=== PATIENT | male | born 1940 | race Two or more races ===

== ENCOUNTER → 2020-12-25 | Outpatient (CLI) | payer MEDICARE, OTHER ==
[2020-07-17 10:25] VITALS: BP 114/58
[~2020-12-25] MED LIST: AMOX1TAB10 PO; CHOL500021 PO; DILT240C33 PO; FENO145T3 PO; FINA5TAB4 PO; LEVO50TA5 PO; LISI1TAB23 PO; LOVA20TA2 PO; METF10007 PO; PROC10TA57 PO; TAMS0.4C97 PO
--- NOTE | 2020-12-25 12:16 | RAD ---
PQRS Compliance Statement: One or more of the following individualized dose reduction techniques were utilized for this examinat ion: 1. Automated exposure control 2. Adjustment of the mA and/or kV according to patient size 3. Use of iterative reconstruction technique CT THORAX WO 12/25/2020 9:08 AM Indication: History of lung cancer COMPARISON: CT chest 11/13/2020, 10/01/2020, 05/21/2020 TECHNIQUE: Multiple axial CT images of the chest were obtained without intravenous contrast. Coronal and sagittal reformats are provided. FINDINGS: There is right apical pleural-parenchymal scarring. Previously seen spiculated nodule at the right lisset ng apex measuring 2.4 cm on 05/21/2020 and 1.9 cm on 11/13/2019 currently measures 1.9 cm with increased adjacent reticular interstitial airspace disease. Stable subpleural nodular mixed solid solid opacit y in the left lung apex measuring 1.5 cm (series 3, image 10). There is increased consolidative gonzales e in the right upper lobe with volume loss which may represent atelectasis versus interstitial pneumo nitis. A cavitary mass with air-fluid level has remained similar in size measuring approximately 4.6 x 3.5 cm (series 3, image 19). Similar degree of adjacent consolidative change within the lateral rig ht upper lobe with associated air bronchograms as compared prior examination. In the right lower lobe there is a solid noncalcified pulmonary nodule measuring 6 mm (series 3, image 26), stable. Calcifie d granuloma identified in the lateral right lung base. Moderate centrilobular pulmonary emphysema. Vo lume loss in the left lung base. Trace right pleural effusion, increased since the prior examination. No pulmonary vascular congestion or pneumothorax. Heart size is within normal limits. Thoracic aorta is normal in course and caliber with moderate calcified atheromatous plaque. Left chest wall infusio n port catheter is identified with the distal tip terminating at the cavoatrial junction. Limited william luation of hilar lymphadenopathy without intravenous contrast. No mediastinal lymph nodes are identif ied are pathologically enlarged. No suspicious osseous abnormality is identified. Post surgical gonzales es are identified along the superior pole the left kidney. Adrenal glands are normal. Gas containing gallstone suspected. IMPRESSION: Similar appearance of a spiculated nodule within the right upper lobe as well as a cavitary lung mass in the posterior right upper lobe with increasing surrounding reticular interstitial and consolidati ve changes suggestive of either posttreatment related changes, postobstructive pneumonitis or lymphan gitic spread of tumor. Continued follow-up is recommended to distinguish etiology. No new or enlargin g thoracic lymphadenopathy. Increase in trace right pleural effusion. Electronically signed by: Cherri Guerra MD (12/25/2020 12:14 PM) [id number]
== END ==
LOC: CT 14:14 → MERGE 14:14
PROVIDERS: ATTEND Internal Medicine Hematology & Oncology
DX: C34.11 Malignant neoplasm of upper lobe, right bronchus or lung (principal); R91.1 Solitary pulmonary nodule; R91.8 Other nonspecific abnormal finding of lung field; Z85.118 Personal history of other malignant neoplasm of bronchus and lung
CPT/HCPCS: 71250